=== PATIENT | male | born 1975 | race African-American/Black ===

== ENCOUNTER 2018-10-18 11:01 | Inpatient (IN) | payer OTHER ==
[2018-10-18 11:26] VITALS: BMI 22.1
--- NOTE | 2018-10-18 12:09 | HP ---
CIWA Score Nausea/Vomitin-No Nausea/No Vomiting Muscle Tremors: None Anxiety: 2 Agitation: 0-Normal Activity Paroxysmal Sweats: No Perspiration Orientation: 0-Oriented Tacttile Disturbances: 0-None Auditory Disturbances: 0-None Visual Disturbances: 0-None Headache: 0-None Present CIWA-Ar Total Score: 2 - Admission Criteria OASAS Guidelines: Admission for Medically Managed Detox: Requires at least one of the followin. CIWA greater than 12 2. Seizures within the past 24 hours 3. Delirium tremens within the past 24 hours 4. Hallucinations within the past 24 hours 5. Acute intervention needed for co occurring medical disorder 6. Acute intervention needed for co occurring psychiatric disorder 7. Severe withdrawal that cannot be handled at a lower level of care (continued vomiting, continued diarrhea, abnormal vital signs) requiring intravenous medication and/or fluids 8. Admission ROS S - HPI Allergies/Adverse Reactions: Allergies Allergy/AdvReac Type Severity Reaction Status Date / Time No Known Allergies Allergy Verified 10/18/18 11:21 History of Present Illness: pt here requesting detox from etoh use , reports was referred by Zulay kishan today , latest use today claims 4 hours ago , denies seizures , blackouts or tremors if not drinking , reports 2 pints/day use since 2 years ago , starts drinking around 7 am . " i am fine now , I drank 4 hours ago " . Current RACHANA 0.000 cocaine : 200 $ /day denies ivdu , daily since age 26 cannabis : 20 $ /day since age 12 tobacco : 3-5 cigs/day . pmhx : denies pshx : denies psych : denies , denies current SI / HI. SHX : lives alone . Exam Limitations: No Limitations - Ebola screening Have you traveled outside of the country in the last 21 days: No Have you had contact with anyone from an Ebola affected area: No - Review of Systems Constitutional: No Symptoms Reported EENT: reports: No Symptoms Reported Respiratory: reports: No Symptoms reported Cardiac: reports: No Symptoms Reported GI: reports: No Symptoms Reported : reports: No Symptoms Reported Musculoskeletal: reports: No Symptoms Reported Integumentary: reports: No Symptoms Reported, Rash Neuro: reports: No Symptoms reported Psychiatric: reports: Orientated x3 Patient History - Smoking Cessation Smoking history: Current every day smoker Have you smoked in the past 12 months: Yes Hx Chewing Tobacco Use: No Initiated information on smoking cessation: No - Substances abused Alcohol Substance route: Oral Frequency: Daily Amount used: 2 PTS OF VODKA Age of first use: 26 Date of last use: 10/18/18 Cocaine Substance route: Smoking Frequency: Daily Amount used: $200 Age of first use: 26 Date of last use: 10/18/18 Marijuana/Hashish Substance route: Smoking Frequency: Daily Amount used: $20 Age of first use: 12 Date of last use: 10/18/18 Family Disease History - Family Disease History Family History: Denies Admission Physical Exam S - Vital Signs Vital Signs: Vital Signs - 24 hr 10/18/18 11:19 Temperature 97.4 F L Pulse Rate 78 Respiratory 18 Rate Blood Pressure 138/76 - Physical General Appearance: Yes: Other (fatgiued , falls asleep frequently during interview, easily awakened by verbal stimuli) HEENTM: Yes: EOMI, Hearing grossly Normal, Normocephalic, Normal Voice Respiratory: Yes: Chest Non-Tender, Lungs Clear, Normal Breath Sounds Neck: Yes: No masses,lesions,Nodules, Trachea in good position Cardiology: Yes: Regular Rhythm, Regular Rate, S1, S2 Abdominal: Yes: Non Tender, Soft Musculoskeletal: Yes: Gait Steady Extremities: Yes: Normal Range of Motion, Non-Tender, Other (no tremors noted) Neurological: Yes: Fully Oriented, Alert, Motor Strength 5/5 Integumentary: Yes: Warm - Diagnostic (1) Cocaine abuse Current Visit: Yes Status: Acute (2) Alcohol abuse Current Visit: Yes Status: Acute (3) Cannabis abuse Current Visit: Yes Status: Acute Breathalyzer - Breathalyzer Breathalyzer: 0 Urine Drug Screen - Test Device Lot number: [id number] Expiration date: 07/16/20 - Control Is test valid?: Yes - Results Drug screen NEGATIVE: No Urine drug screen results: THC-Marijuana, ALFA-Cocaine, BZO-Benzodiazepines Inpatient Rehab Admission - Rehab Decision to Admit Inpatient rehab admission?: Yes - Initial Determination Are CD services needed?: Yes Free of communicable disease: Yes Not in need of hospitalization: Yes - Rehab Admission Criteria Previous failed treatment: No Poor recovery environment: No Comorbidities: No Lacks judgement: Yes Patient is meeting Inpatient Rehab admission criteria:: Yes (pt became verbally aggressive w/ film writer demanding detox )
[2018-10-18] MEDS ORDERED: ACETAMINOPHEN 325 MG TABLET (FP) PO PRN (12:30)
[2018-10-18] MEDS ORDERED: IBUPROFEN 400 MG TABLET (FP) PO PRN (12:30)
[2018-10-18] MEDS ORDERED: LOPERAMIDE HCL 2 MG CAPSULE PO PRN (12:30)
[2018-10-18] MEDS ORDERED: guaiFENesin 200 MG/10 ML 10 ML UNIT-DOSE CUPS PO PRN (12:30)
[2018-10-18] MEDS ORDERED: MAG HYDROX/AL HYDROX/SIMETH 30 ML UNIT-DOSE CUP PO PRN (12:30)
[2018-10-18] MEDS ORDERED: MENTHOL/PHENOL 1 EACH UD MM PRN (12:30)
[2018-10-18] MEDS ORDERED: MAGNESIUM HYDROX 2400MG/30ML ORAL SUSPENSION 30 ML CUP PO PRN (12:30)
[2018-10-18] MEDS ORDERED: hydrOXYzine PAMOATE 50 MG CAPSULE (FP) PO PRN (12:30)
[2018-10-18] MEDS ORDERED: NICOTINE POLACRILEX 2 MG GUM BC PRN (12:30)
[2018-10-18] MEDS ORDERED: MAGNESIUM CITRATE 300 ML BOTTLE PO PRN (12:30)
[2018-10-18] MEDS ORDERED: P-EPHED 60MG/TRIPROLIDI 2.5MG TABLET PO PRN (12:30)
[2018-10-18] MEDS ORDERED: TUBERCULIN PPD 5 TU/0.1ML VIAL ID ONE (13:10)
[2018-10-18] MEDS ORDERED: MELATONIN 5 MG TABLETS PO PRN (22:00)
[2018-10-18] MEDS: THIAMINE HCL 100 MG TABLET (FP) PO SCH (22:08)
[2018-10-19 02:07] LABS: URINE APPEARANCE CLEAR; URINE BILIRUBIN NEGATIVE (NEGATIVE); URINE COLOR YELLOW; URINE GLUCOSE (UA) NEGATIVE (NEGATIVE); URINE KETONE NEGATIVE (NEGATIVE); URINE LEUK ESTERASE NEGATIVE (NEGATIVE); URINE NITRITE NEGATIVE (NEGATIVE); URINE PROTEIN NEGATIVE (NEGATIVE); URINE UROBILINOGEN 0.2 mg/dL (0.2-1.0)
[2018-10-19 10:13] LABS: ALBUMIN 3.6 g/dl (3.4-5.0); BILIRUBIN,TOTAL 0.6 mg/dL (0.2-1); CALCIUM 8.8 mg/dL (8.5-10.1); POTASSIUM 4.7 mmol/L (3.5-5.1); TOT PROT 6.3 g/dl (6.4-8.2)
[2018-10-19 10:55] LABS: HEMATOCRIT 36.2 % (35.4-49); MCH 30.7 pg (25.7-33.7); MCHC 33.1 g/dl (32.0-35.9); MEAN CELL VOLUME 92.8 fl (80-96); MEAN PLT VOLUME 11.3 fl (7.5-11.1); PLATELET COUNT 292 K/MM3 (134-434); RDW 16.5 % (11.9-15.9); WHITE BLOOD COUNT 5.5 K/mm3 (4.0-10.0)
[2018-10-19] MEDS: PRENATAL VITAMINS W/ FOLIC ACID TABLET (FP) PO SCH (13:12)
[2018-10-19] MEDS: THIAMINE HCL 100 MG TABLET (FP) PO SCH (21:41)
[2018-10-20 06:35] VITALS: BP 138/90; PULSE 73; TEMP 98
--- NOTE | 2018-10-20 09:48 | PN ---
[facility] Progress Note (SOAP) Subjective: PT WAS ADMITTED TO REHAB ON 10/18/18 AND SUDDENLY EXPRESSES DESIRE TO DISCONTINUE TREATMENT THIS MORNING. PT DECLINED TO GIVE REASON FOR LEAVING, STATING "UNFORTUNATELY YES, I DON'T WANT TO TALK ABOUT IT". HOWEVER, PT WAS REFERRED FOR CD AFTERCARE TO [facility] FOR 11/02/18 AT 11:00. PT REPORTS HE DOES NOT KNOW HIS PLANS YET AND MIGHT GO TO [place]. PT REPORTS HE HAS NO PCP BUT HAVE UTILIZED [facility] IN THE PAST AND MAY CONTINUE TO DO SO WHEN NEEDED. PT IS ALERT O X 3. AMBULATES WITH STEADY GAIT. DENIES S/H/I. DENIES PMHx, PPSYHx AND NOT ON ANY MEDICATIONS. Objective: 10/20/18 09:53 Vital Signs - 24 hr 10/20/18 10/20/18 10/20/18 00:30 03:30 06:34 Temperature 98.0 F Pulse Rate 73 Respiratory 16 18 16 Rate Blood Pressure 138/90 Laboratory Tests 10/18/18 10/19/18 10/19/18 15:57 08:30 08:30 WBC 5.5 RBC 3.90 L Hgb 12.0 Hct 36.2 MCV 92.8 MCH 30.7 MCHC 33.1 RDW 16.5 H Plt Count 292 MPV 11.3 H Sodium 136 Potassium 4.7 Chloride 104 Carbon Dioxide 28 Anion Gap 5 L BUN 11 Creatinine 1.0 Est GFR (CKD-EPI)AfAm 105.62 Est GFR (CKD-EPI)NonAf 91.13 Random Glucose 88 Calcium 8.8 Total Bilirubin 0.6 AST 26 ALT 20 Alkaline Phosphatase 58 Total Protein 6.3 L Albumin 3.6 Urine Color Yellow Urine Appearance Clear Urine pH 8.0 Ur Specific [place] 1.013 Urine Protein Negative Urine Glucose (UA) Negative Urine Ketones Negative Urine Blood Negative Urine Nitrite Negative Urine Bilirubin Negative Urine Urobilinogen 0.2 Ur Leukocyte Esterase Negative RPR Titer HIV 1&2 Antibody Screen HIV P24 Antigen 10/19/18 10/19/18 08:30 08:30 WBC RBC Hgb Hct MCV MCH MCHC RDW Plt Count MPV Sodium Potassium Chloride Carbon Dioxide Anion Gap BUN Creatinine Est GFR (CKD-EPI)AfAm Est GFR (CKD-EPI)NonAf Random Glucose Calcium Total Bilirubin AST ALT Alkaline Phosphatase Total Protein Albumin Urine Color Urine Appearance Urine pH Ur Specific [place] Urine Protein Urine Glucose (UA) Urine Ketones Urine Blood Urine Nitrite Urine Bilirubin Urine Urobilinogen Ur Leukocyte Esterase RPR Titer Nonreactive HIV 1&2 Antibody Screen Negative HIV P24 Antigen Negative Home Medications Medication Instructions Recorded NK [No Known Home Medication] 10/18/18 Assessment: 10/20/18 09:57 NAD Plan: PT SIGNED OUT AMA FOLLOW UP WITH CD AFTERCARE RECOMMENDATIONS AND MEDICATION.
[2018-10-20] MEDS: PRENATAL VITAMINS W/ FOLIC ACID TABLET (FP) PO SCH (09:58)
== END 2018-10-20 10:00 | disposition left against medical advice (07) | DRG 770 ==
LOC: YASAS 11:01 → Y5N 12:39
PROVIDERS: ADMIT Neuromusculoskeletal Medicine & OMM; ATTEND Neuromusculoskeletal Medicine & OMM
PROC: HZ42ZZZ Group Counseling for Substance Abuse Treatment, Cognitive-Behavioral (ICD-10-PCS; principal; 2018-10-18)
DX: F10.20 Alcohol dependence, uncomplicated (principal); F14.20 Cocaine dependence, uncomplicated; F12.20 Cannabis dependence, uncomplicated
CPT/HCPCS: 36415; 80053; 81003; 85027; 86593; 87389

== ENCOUNTER 2019-07-15 19:36 | Inpatient (IN) | payer OTHER ==
--- NOTE | 2019-07-15 19:54 | BHS.RME ---
Substance Use & Tx History - Last Treatment Where was last treatment: Rehab (10/18/18 left AMA) Physical/Psych/Mental Status - Behavior Eye Contact: Normal - Cooperativeness Cooperativeness: Cooperative - Thinking Thought Processes: Logical - Physical Health Problems Is patient presently having any pain?: No Does patient presently have any injuries (include location): No Does patient currently have a fever: No CIWA Nausea/Vomitin-No Nausea/No Vomiting Muscle Tremors: 1-None Visible, but [place] Anxiety: 0-No Anxiety, at Ease Agitation: 1-Slight > Activity Paroxysmal Sweats: 2 Orientation: 3-Disoriented Date>2 days Tacttile Disturbances: 0-None Auditory Disturbances: 2-Mild Harshness/Frighten Visual Disturbances: 3-Moderate Sensitivity Headache: 0-None Present CIWA-Ar Total Score: 12
[2019-07-15 20:39] VITALS: BMI 22.4
--- NOTE | 2019-07-15 20:53 | HP ---
CIWA Score Nausea/Vomitin-No Nausea/No Vomiting Muscle Tremors: 1-None Visible, but [place] Anxiety: 0-No Anxiety, at Ease Agitation: 1-Slight > Activity Paroxysmal Sweats: 2 Orientation: 3-Disoriented Date>2 days Tacttile Disturbances: 0-None Auditory Disturbances: 2-Mild Harshness/Frighten Visual Disturbances: 3-Moderate Sensitivity Headache: 0-None Present CIWA-Ar Total Score: 12 - Admission Criteria OASAS Guidelines: Admission for Medically Managed Detox: Requires at least one of the followin. CIWA greater than 12 2. Seizures within the past 24 hours 3. Delirium tremens within the past 24 hours 4. Hallucinations within the past 24 hours 5. Acute intervention needed for co occurring medical disorder 6. Acute intervention needed for co occurring psychiatric disorder 7. Severe withdrawal that cannot be handled at a lower level of care (continued vomiting, continued diarrhea, abnormal vital signs) requiring intravenous medication and/or fluids 8. Admitting History and Physical - Smoking History Smoking history: Current every day smoker Have you smoked in the past 12 months: Yes Aproximately how many cigarettes per day: 5 Admission ROS [facility] - HPI Allergies/Adverse Reactions: Allergies Allergy/AdvReac Type Severity Reaction Status Date / Time No Known Allergies Allergy Verified 07/15/19 20:31 History of Present Illness: pt here requesting detox from etoh use , rpeorts 2-3 x 24 oz beer/day , reports tremors if not drinking ,denies seizures or blackouts tobacco : 5-7 cigs/day PMHX/PSHX : dermatitis tx w/ Benadryl PSych : denies Exam Limitations: Clinical Condition - Review of Systems Constitutional: Loss of Appetite EENT: reports: No Symptoms Reported Respiratory: reports: No Symptoms reported Cardiac: reports: No Symptoms Reported GI: reports: No Symptoms Reported : reports: No Symptoms Reported Musculoskeletal: reports: No Symptoms Reported Integumentary: reports: See HPI, Other (intermittent skin allergy ") Neuro: reports: No Symptoms reported Endocrine: reports: No Symptoms Reported Hematology: reports: No Symptoms Reported Psychiatric: reports: Orientated x3 Patient History - Patient Medical History Hx Asthma: No Hx Chronic Obstructive Pulmonary Disease (COPD): No Hx Cardiac Disorders: No Hx Hypertension: No Hx Seizures: No Hx Diabetes: No Hx Gastrointestinal Disorders: No Hx Genitourinary Disorders: No Hx Sexually Transmitted Disorders: No Hx Renal Disease (ESRD): No Hx Depression: No Hx Suicide Attempt: No Hx Schizophrenia: No - Patient Surgical History Past Surgical History: No Hx Neurologic Surgery: No Hx Cataract Extraction: No Hx Cardiac Surgery: No Hx Lung Surgery: No Hx Breast Surgery: No Hx Breast Biopsy: No Hx Abdominal Surgery: No Hx Appendectomy: No Hx Cholecystectomy: No Hx Genitourinary Surgery: No Hx Section: No Hx Orthopedic Surgery: No Anesthesia Reaction: No - PPD History Date: 10/20/18 - Reproductive History Patient : No - Smoking Cessation Smoking history: Current every day smoker Have you smoked in the past 12 months: Yes Aproximately how many cigarettes per day: 5 Hx Chewing Tobacco Use: No Initiated information on smoking cessation: Yes 'Breaking Loose' booklet given: 07/15/19 - Substances abused Alcohol Substance route: Oral Frequency: Daily Amount used: 3 of 40 ounces of beer Age of first use: 12 Date of last use: 07/15/19 Cocaine Substance route: Smoking Frequency: Daily Amount used: 200 hundred dollars. Age of first use: 26 Date of last use: 07/15/19 Marijuana/Hashish Substance route: Smoking Frequency: Daily Amount used: 50 dollars Age of first use: 12 Date of last use: 07/15/19 Admission Physical Exam BHS - Vital Signs Vital Signs: Vital Signs - 24 hr 07/15/19 20:31 Temperature 98.9 F Pulse Rate 80 Respiratory 18 Rate Blood Pressure 149/90 - Physical General Appearance: Yes: Mild Distress, Anxious, Other (drowsy) HEENTM: Yes: EOMI, Hearing grossly Normal, Normocephalic, Normal Voice Respiratory: Yes: Chest Non-Tender, Lungs Clear, Normal Breath Sounds, No Respiratory Distress, No Accessory Muscle Use Neck: Yes: No masses,lesions,Nodules, Trachea in good position Cardiology: Yes: Regular Rhythm, Regular Rate, S1, S2 Abdominal: Yes: Non Tender, Soft Musculoskeletal: Yes: Gait Steady Extremities: Yes: Normal Range of Motion, Non-Tender Neurological: Yes: Fully Oriented, Alert, Motor Strength 5/5 Integumentary: Yes: Warm - Diagnostic (1) Nicotine dependence Current Visit: Yes Status: Chronic Qualifiers: Nicotine product type: cigarettes (2) Alcohol abuse Current Visit: Yes Status: Chronic (3) Cocaine abuse Current Visit: Yes Status: Chronic Breathalyzer - Breathalyzer Breathalyzer: 0 Urine Drug Screen - Test Device Lot number: [id number] Expiration date: 07/16/20 - Control Is test valid?: Yes - Results Drug screen NEGATIVE: No Urine drug screen results: THC-Marijuana, ALFA-Cocaine, BZO-Benzodiazepines Inpatient Rehab Admission - Rehab Decision to Admit Inpatient rehab admission?: No
[2019-07-15] MEDS ORDERED: ACETAMINOPHEN 325 MG TABLET (FP) PO PRN ×2 (21:01)
[2019-07-15] MEDS ORDERED: BISMUTH SUBSALICYLATE 524 MG/30 ML UD PO PRN (21:01)
[2019-07-15] MEDS ORDERED: MAGNESIUM HYDROX 2400MG/30ML ORAL SUSPENSION 30 ML CUP PO PRN (21:01)
[2019-07-15] MEDS ORDERED: MAGNESIUM CITRATE 300 ML BOTTLE PO PRN (21:01)
[2019-07-15] MEDS ORDERED: IBUPROFEN 400 MG TABLET (FP) PO PRN (21:01)
[2019-07-15] MEDS ORDERED: MAG HYDROX/AL HYDROX/SIMETH 30 ML UNIT-DOSE CUP PO PRN (21:01)
[2019-07-15] MEDS ORDERED: MENTHOL/PHENOL 1 EACH UD MM PRN (21:01)
[2019-07-15] MEDS: diazePAM 5 MG TABLET PO SCH (21:34)
[2019-07-15] MEDS: THIAMINE HCL 100 MG TABLET (FP) PO SCH (21:34)
[2019-07-15] MEDS: MELATONIN 5 MG TABLETS PO PRN (21:34)
[2019-07-16] MEDS: diazePAM 5 MG TABLET PO SCH ×3 (07:37→22:10)
[2019-07-16] MEDS: PRENATAL VITAMINS W/ FOLIC ACID TABLET (FP) PO SCH (11:02)
[2019-07-16 11:18] LABS: HEMATOCRIT 39.8 % (35.4-49); HEMOGLOBIN 13.5 GM/dL (11.7-16.9); MCH 30.9 pg (25.7-33.7); MCHC 33.8 g/dl (32.0-35.9); MEAN CELL VOLUME 91.4 fl (80-96); MEAN PLT VOLUME 10.9 fl (7.5-11.1); PLATELET COUNT 241 K/MM3 (134-434); RBC 4.36 M/mm3 (4.00-5.60); RDW 15.2 % (11.9-15.9); WHITE BLOOD COUNT 4.4 K/mm3 (4.0-10.0)
[2019-07-16 11:22] LABS: ALBUMIN 3.5 g/dl (3.4-5.0); BILIRUBIN,TOTAL 0.6 mg/dL (0.2-1); BLOOD UREA NITROGEN 9.5 mg/dL (7-18); CALCIUM 8.8 mg/dL (8.5-10.1); POTASSIUM 4.5 mmol/L (3.5-5.1); TOT PROT 6.5 g/dl (6.4-8.2)
--- NOTE | 2019-07-16 12:08 | PN ---
BHS CIWA - CIWA Score Nausea/Vomitin Muscle Tremors: 1-None Visible, but [place] (+) Anxiety: 1-Mildly Anxious Agitation: 1-Slight > Activity Paroxysmal Sweats: 2 Orientation: 0-Oriented Tacttile Disturbances: 1-Very Mild Itch/Numbness Auditory Disturbances: 0-None Visual Disturbances: 0-None Headache: 0-None Present CIWA-Ar Total Score: 8 BHS Progress Note (SOAP) Subjective: interrupted sleep, sweats , upset stomach , nause-mild Objective: 07/16/19 12:11 Vital Signs Temperature 98.6 F 07/16/19 08:59 Pulse Rate 83 07/16/19 08:59 Respiratory Rate 18 07/16/19 08:59 Blood Pressure 142/83 07/16/19 08:59 O2 Sat by Pulse Oximetry (%) Laboratory Tests 07/16/19 07/16/19 07/16/19 08:00 08:00 08:00 WBC 4.4 RBC 4.36 Hgb 13.5 Hct 39.8 MCV 91.4 MCH 30.9 MCHC 33.8 RDW 15.2 Plt Count 241 MPV 10.9 Sodium 136 Potassium 4.5 Chloride 104 Carbon Dioxide 30 Anion Gap 2 L BUN 9.5 Creatinine 1.0 Est GFR (CKD-EPI)AfAm 104.88 Est GFR (CKD-EPI)NonAf 90.49 Random Glucose 98 Calcium 8.8 Total Bilirubin 0.6 AST 25 ALT 22 Alkaline Phosphatase 63 Total Protein 6.5 Albumin 3.5 RPR Titer Nonreactive pt aox3 in nad ambulating Assessment: 07/16/19 12:11 withdrawal sx's Plan: cont. etox increase fluidas [place].
[2019-07-16] MEDS: diazePAM 5 MG TABLET PO PRN (15:44)
[2019-07-16] MEDS: METHOCARBAMOL 500 MG TABLET PO PRN ×2 (17:07→22:10)
[2019-07-16] MEDS: hydrOXYzine PAMOATE 25 MG CAPSULE (FP) PO PRN (17:07)
[2019-07-16] MEDS: THIAMINE HCL 100 MG TABLET (FP) PO SCH (22:09)
[2019-07-16] MEDS: MELATONIN 5 MG TABLETS PO PRN (22:10)
[2019-07-17] MEDS: hydrOXYzine PAMOATE 25 MG CAPSULE (FP) PO PRN (01:33)
[2019-07-17] MEDS ORDERED: diazePAM 5 MG TABLET PO SCH (06:00)
[2019-07-17] MEDS: PRENATAL VITAMINS W/ FOLIC ACID TABLET (FP) PO SCH (10:19)
[2019-07-17] MEDS: diazePAM 5 MG TABLET PO PRN (10:20)
[2019-07-17 11:24] VITALS: BP 130/66; PULSE 110; TEMP 98.2
--- NOTE | 2019-07-17 18:36 | DS ---
[facility] Detox Discharge Summary Admission Date: 07/15/19 Discharge Date: 07/17/19 - History Present History: Alcohol Dependence, Cocaine Dependence Additional Comments: SINCE PATIENT REPORTS THAT CURRENT WITHDRAWAL / DETOX SYMPTOMS ARE MINIMAL IN DEGREE AND THAT HE FEELS WELL OVERALL, AT PATIENTS REQUEST, HE WAS GRANTED AN EARLY DISCHARGE FROM DETOX UNIT TODAY SO THAT HE MAY ATTEND TO NECESSARY PERSONAL AFFAIRS. HE WILL CONSIDER RETURNING FOR REHAB AT [facility] FOR AFTERCARE IN NEXT FEW DAYS. PATIENT ADVISED TO CONSIDER LOCAL 12-STEP / NA / AA OUTPATIENT SUPPORT GROUP PROGRAMS FOR AFTERCARE. PATIENT VERBALIZED UNDERSTANDING OF RECOMMENDATION. PATIENT WAS DISCHARGED FROM DETOX UNIT IN STABLE MEDICAL CONDITION. Pertinent Past History: Nicotine Dependence, Dermatitis. - Physical Exam Results Vital Signs: Vital Signs Temperature 98.2 F 07/17/19 11:24 Pulse Rate 110 H 07/17/19 11:24 Respiratory Rate 07/17/19 11:24 Blood Pressure 130/66 07/17/19 11:24 O2 Sat by Pulse Oximetry (%) Pertinent Admission Physical Exam Findings: WITHDRAWAL SYMPTOMS. Laboratory Tests 07/16/19 07/16/19 07/16/19 08:00 08:00 08:00 WBC 4.4 RBC 4.36 Hgb 13.5 Hct 39.8 MCV 91.4 MCH 30.9 MCHC 33.8 RDW 15.2 Plt Count 241 MPV 10.9 Sodium 136 Potassium 4.5 Chloride 104 Carbon Dioxide 30 Anion Gap 2 L BUN 9.5 Creatinine 1.0 Est GFR (CKD-EPI)AfAm 104.88 Est GFR (CKD-EPI)NonAf 90.49 Random Glucose 98 Calcium 8.8 Total Bilirubin 0.6 AST 25 ALT 22 Alkaline Phosphatase 63 Total Protein 6.5 Albumin 3.5 RPR Titer Nonreactive LABS NOTED. - Treatment Hospital Course: Detox Protocol Followed, Detoxed Safely, Responded well, Discharged Condition Good Patient has Accepted a Rehab Referral to: PT. WILL CONSIDER [facility] ([place], [place]) FOR LATER DATE. - Medication Discharge Medications: Ambulatory Orders NK [No Known Home Medication] 10/18/18 - Diagnosis (1) Alcohol dependence Status: Chronic Qualifiers: Substance use status: uncomplicated Qualified Code(s): F10.20 - Alcohol dependence, uncomplicated (2) Nicotine dependence Status: Chronic Qualifiers: Nicotine product type: cigarettes Substance use status: uncomplicated Qualified Code(s): F17.210 - Nicotine dependence, cigarettes, uncomplicated (3) Cocaine abuse Status: Chronic - AMA Did Patient Leave Against Medical Advice: No
[2019-07-18] MEDS ORDERED: diazePAM 5 MG TABLET PO ONE (06:00)
== END 2019-07-17 15:12 | disposition home or self-care (01) | DRG 774 ==
LOC: YASAS 19:36 → Y6N 21:07
PROVIDERS: ADMIT Allergy & Immunology; ATTEND Allergy & Immunology
PROC: HZ2ZZZZ Detoxification Services for Substance Abuse Treatment (ICD-10-PCS; principal; 2019-07-15)
DX: F10.230 Alcohol dependence with withdrawal, uncomplicated (principal); F14.20 Cocaine dependence, uncomplicated; F12.20 Cannabis dependence, uncomplicated; F17.210 Nicotine dependence, cigarettes, uncomplicated; L30.9 Dermatitis, unspecified
CPT/HCPCS: 36415; 80053; 85027; 86593

== ENCOUNTER 2019-10-27 10:35 | Inpatient (IN) | payer OTHER ==
[2019-10-27] MEDS ORDERED: MAGNESIUM HYDROX 2400MG/30ML ORAL SUSPENSION 30 ML CUP PO PRN (11:10)
[2019-10-27] MEDS ORDERED: BISMUTH SUBSALICYLATE 262 MG/15 ML BTL PO PRN (11:10)
[2019-10-27] MEDS ORDERED: IBUPROFEN 400 MG TABLET (FP) PO PRN (11:10)
[2019-10-27] MEDS ORDERED: ONDANSETRON *ODT* 4 MG TABLET SL ONE ×2 (11:10→11:17)
[2019-10-27] MEDS ORDERED: METHOCARBAMOL 500 MG TABLET PO PRN (11:10)
[2019-10-27] MEDS ORDERED: ACETAMINOPHEN 325 MG TABLET (FP) PO PRN ×2 (11:10)
[2019-10-27] MEDS ORDERED: MENTHOL/PHENOL 1 EACH UD MM PRN (11:10)
[2019-10-27] MEDS ORDERED: MAGNESIUM CITRATE 300 ML BOTTLE PO PRN (11:10)
[2019-10-27] MEDS ORDERED: chlordiazePOXIDE HCL 25 MG CAPSULE PO PRN (11:10)
[2019-10-27] MEDS ORDERED: NICOTINE POLACRILEX 2 MG GUM BUC PRN (11:10)
[2019-10-27] MEDS ORDERED: chlordiazePOXIDE HCL 25 MG CAPSULE PO ONE (11:16)
[2019-10-27 11:54] VITALS: BMI 23.7
[2019-10-27] MEDS: NICOTINE 7 MG/24 HOURS TOPICAL PATCH TD SCH (13:00)
[2019-10-27] MEDS: MAG HYDROX/AL HYDROX/SIMETH 30 ML UNIT-DOSE CUP PO PRN (13:00)
[2019-10-27] MEDS: PRENATAL VITAMINS W/ FOLIC ACID TABLET (FP) PO SCH (13:00)
[2019-10-27] MEDS: chlordiazePOXIDE HCL 25 MG CAPSULE PO SCH ×3 (13:02→22:08)
[2019-10-27 14:10] LABS: HEMATOCRIT 41.7 % (35.4-49); MCH 30.7 pg (25.7-33.7); MCHC 33.6 g/dl (32.0-35.9); MEAN CELL VOLUME 91.6 fl (80-96); MEAN PLT VOLUME 11.5 fl (7.5-11.1); PLATELET COUNT 220 K/MM3 (134-434); RBC 4.55 M/mm3 (4.00-5.60); RDW 14.2 % (11.9-15.9); WHITE BLOOD COUNT 7.1 K/mm3 (4.0-10.0)
[2019-10-27 14:26] LABS: ALBUMIN 4.3 g/dl (3.4-5.0); BLOOD UREA NITROGEN 12.7 mg/dL (7-18); CALCIUM 9.2 mg/dL (8.5-10.1); POTASSIUM 4.5 mmol/L (3.5-5.1)
[2019-10-27 14:30] LABS: BILIRUBIN,TOTAL 0.5 mg/dL (0.2-1); CREATININE 1.2 mg/dL (0.55-1.3); TOT PROT 7.4 g/dl (6.4-8.2)
[2019-10-27] MEDS: hydrOXYzine PAMOATE 25 MG CAPSULE (FP) PO SCH ×3 (14:53→22:08)
[2019-10-27] MEDS ORDERED: THIAMINE HCL 100 MG TABLET (FP) PO SCH (22:00)
[2019-10-27] MEDS ORDERED: MELATONIN 5 MG TABLETS PO SCH (22:00)
[2019-10-28] MEDS: hydrOXYzine PAMOATE 25 MG CAPSULE (FP) PO SCH (05:44)
[2019-10-28] MEDS: chlordiazePOXIDE HCL 25 MG CAPSULE PO SCH ×2 (05:44→10:13)
[2019-10-28] MEDS ORDERED: hydrOXYzine PAMOATE 25 MG CAPSULE (FP) PO PRN (08:59)
[2019-10-28 09:19] VITALS: BP 130/88; PULSE 100; TEMP 97.9
[2019-10-28] MEDS: PRENATAL VITAMINS W/ FOLIC ACID TABLET (FP) PO SCH (10:13)
[2019-10-28] MEDS: NICOTINE 7 MG/24 HOURS TOPICAL PATCH TD SCH (10:13)
[2019-10-28] MEDS: MAG HYDROX/AL HYDROX/SIMETH 30 ML UNIT-DOSE CUP PO PRN (10:14)
[2019-10-29] MEDS ORDERED: chlordiazePOXIDE HCL 25 MG CAPSULE PO SCH (05:00)
[2019-10-30] MEDS ORDERED: chlordiazePOXIDE HCL 10 MG CAPSULE PO PRN
[2019-10-30] MEDS ORDERED: chlordiazePOXIDE HCL 10 MG CAPSULE PO SCH (05:00)
[2019-10-31] MEDS ORDERED: chlordiazePOXIDE HCL 10 MG CAPSULE PO SCH (05:00)
[2019-11-01] MEDS ORDERED: chlordiazePOXIDE HCL 10 MG CAPSULE PO ONE (05:00)
== END 2019-10-28 14:32 | disposition left against medical advice (07) | DRG 770 ==
LOC: YASAS 10:35 → Y6N 11:34 → Y3N 10-28 13:35
PROVIDERS: ADMIT Allergy & Immunology; ATTEND Allergy & Immunology
PROC: HZ2ZZZZ Detoxification Services for Substance Abuse Treatment (ICD-10-PCS; principal; 2019-10-27)
DX: F10.230 Alcohol dependence with withdrawal, uncomplicated (principal); F14.20 Cocaine dependence, uncomplicated; F12.20 Cannabis dependence, uncomplicated; F17.210 Nicotine dependence, cigarettes, uncomplicated; L30.9 Dermatitis, unspecified
CPT/HCPCS: 36415; 80053; 85027; 86780; 93005; 93010; Q0162; U0003

== ENCOUNTER 2019-12-15 17:54 | Inpatient (IN) | payer OTHER ==
[2019-12-15 18:18] VITALS: BMI 23.7
--- NOTE | 2019-12-15 19:52 | HP ---
CIWA Score Nausea/Vomitin Muscle Tremors: 3 Anxiety: 3 Agitation: 3 Paroxysmal Sweats: 2 Orientation: 0-Oriented Tacttile Disturbances: 0-None Auditory Disturbances: 0-None Visual Disturbances: 0-None Headache: 3-Moderate CIWA-Ar Total Score: 16 - Admission Criteria OASAS Guidelines: Admission for Medically Managed Detox: Requires at least one of the followin. CIWA greater than 12 2. Seizures within the past 24 hours 3. Delirium tremens within the past 24 hours 4. Hallucinations within the past 24 hours 5. Acute intervention needed for co occurring medical disorder 6. Acute intervention needed for co occurring psychiatric disorder 7. Severe withdrawal that cannot be handled at a lower level of care (continued vomiting, continued diarrhea, abnormal vital signs) requiring intravenous medication and/or fluids 8. Admitting History and Physical - Smoking History Smoking history: Never smoked Have you smoked in the past 12 months: No Aproximately how many cigarettes per day: 0 Admission ROS S - [facility] Chief Complaint: Seeking admission to detox from alcohol Allergies/Adverse Reactions: Allergies Allergy/AdvReac Type Severity Reaction Status Date / Time No Known Allergies Allergy Verified 12/15/19 18:32 History of Present Illness: 44 years old male with a long history of alcohol dependence (since age 12 years old) is seeking admission to detox. His last admission was for the period 10/27/2019 - 10/28/2019 when he left against medical advice for family emergency. Treatment contract obtained from patient. He reports that he drinks 2 liters of Vodka/gin and 1 x 6 pack beer daily. He has medical history of Mitral valve disorder and psych. history of depression. He reports suicide attempt in 2001 and denies suicidal ideation at this time. He is unemployed, homeless and is on 3 years probation. 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 Exam Limitations: No Limitations - Ebola screening Have you traveled outside of the country in the last 21 days: No Have you had contact with anyone from an Ebola affected area: No Have you been sick,other than usual withdrawal symptoms: No Do you have a fever: No - Review of Systems Constitutional: Malaise, Night Sweats EENT: reports: No Symptoms Reported Respiratory: reports: No Symptoms reported Cardiac: reports: No Symptoms Reported GI: reports: Poor Appetite, Poor Fluid Intake, Abdominal cramping : reports: No Symptoms Reported Musculoskeletal: reports: No Symptoms Reported Integumentary: reports: Dryness, Flushing Neuro: reports: Headache, Tremors Endocrine: reports: No Symptoms Reported Hematology: reports: No Symptoms Reported Psychiatric: reports: Mood/Affect Appropiate, Orientated x3 Other Systems: Reviewed and Negative Patient History - Patient Medical History Hx Anemia: Yes Hx Asthma: No Hx Chronic Obstructive Pulmonary Disease (COPD): No Hx Cardiac Disorders: Yes (Mitral valve disorder) Hx Congestive Heart Failure: No Hx Hypertension: No Hx Hypercholesterolemia: No Hx Pacemaker: No HX Cerebrovascular Accident: No Hx Seizures: No Hx Diabetes: No Hx Gastrointestinal Disorders: No Hx Liver Disease: No Hx Genitourinary Disorders: No Hx Sexually Transmitted Disorders: No Hx Renal Disease (ESRD): No Hx Thyroid Disease: No Hx Human Immunodeficiency Virus (HIV): No (Negative 2019) Hx Hepatitis C: No Hx Depression: Yes Hx Suicide Attempt: No (Attemptd suicide 2001, denies suicidal ideation at this time) Hx Bipolar Disorder: No Hx Schizophrenia: No - Patient Surgical History Past Surgical History: Yes Hx Neurologic Surgery: No Hx Cataract Extraction: No Hx Cardiac Surgery: Yes (open heart surgery 2017) Hx Lung Surgery: No Hx Breast Surgery: No Hx Breast Biopsy: No Hx Abdominal Surgery: No Hx Appendectomy: No Hx Cholecystectomy: No Hx Genitourinary Surgery: No Hx Section: No Hx Orthopedic Surgery: No Anesthesia Reaction: No - PPD History Previous Implant?: Yes Documented Results: Negative w/proof Implanted On Prior [facility] Admission?: Yes Date: 10/20/18 Results: negative PPD to be Administered?: Yes - Reproductive History Patient is a Female of Child Bearing Age (11 -55 yrs old): No (Male) - Smoking Cessation Smoking history: Never smoked Have you smoked in the past 12 months: No Hx Chewing Tobacco Use: No Initiated information on smoking cessation: No - Substance & Tx. History Hx Alcohol Use: Yes Hx Substance Use: Yes Substance Use Type: Alcohol, Cocaine Hx Substance Use Treatment: Yes ([facility]) - Substances abused Alcohol Substance route: Oral Frequency: Daily Amount used: liquor- 1 liter Vodka, 1 x 6 pack beer Age of first use: 12 Date of last use: 12/15/19 Marijuana/Hashish Substance route: Smoking Frequency: 1-2 times per week Amount used: 1 blunt Age of first use: 12 Date of last use: 12/14/19 Other Other (specify): K2 Substance route: Smoking Frequency: Daily Amount used: $10 Age of first use: 44 Date of last use: 12/14/19 Admission Physical Exam [facility] - Vital Signs Vital Signs: Vital Signs - 24 hr 12/15/19 12/15/19 18:16 18:34 Temperature 98.4 F 98.4 F Pulse Rate 121 H 121 H Respiratory 18 18 Rate Blood Pressure 141/90 141/90 - Physical General Appearance: Yes: Moderate Distress, Sweating, Anxious HEENTM: Yes: Within Normal Limits Respiratory: Yes: Within Normal Limits Neck: Yes: Within Normal Limits Breast: Yes: Breast Exam Deferred Cardiology: Yes: Tachycardia Abdominal: Yes: Normal Bowel Sounds, Soft Genitourinary: Yes: Within Normal Limits Back: Yes: Normal Inspection Musculoskeletal: Yes: Within Normal Limits Extremities: Yes: Tremors Neurological: Yes: Within Normal Limits Integumentary: Yes: Warm Lymphatic: Yes: Within Normal Limits - Diagnostic (1) Mitral valve disorder Current Visit: Yes Status: Chronic (2) Alcohol dependence with withdrawal Current Visit: Yes Status: Acute (3) Cocaine dependence Current Visit: Yes Status: Chronic Qualifiers: Substance use status: uncomplicated Qualified Code(s): F14.20 - Cocaine dependence, uncomplicated Cleared for Admission [facility] - Detox or Rehab [facility] Level of Care: Medically Managed Detox Regimen/Protocol: Librium Claeared for Rehab Admission: No Breathalyzer - Breathalyzer Breathalyzer: 0 Urine Drug Screen - Test Device Lot number: [id number] Expiration date: 08/24/21 - Control Is test valid?: Yes - Results Drug screen NEGATIVE: No Urine drug screen results: ALFA-Cocaine Inpatient Rehab Admission - Rehab Decision to Admit Inpatient rehab admission?: No
[2019-12-15] MEDS ORDERED: BISMUTH SUBSALICYLATE 524 MG/30 ML UD PO PRN (20:13)
[2019-12-15] MEDS ORDERED: IBUPROFEN 400 MG TABLET (FP) PO PRN (20:13)
[2019-12-15] MEDS ORDERED: chlordiazePOXIDE HCL 25 MG CAPSULE PO PRN (20:13)
[2019-12-15] MEDS ORDERED: MAGNESIUM HYDROX 2400MG/30ML ORAL SUSPENSION 30 ML CUP PO PRN (20:13)
[2019-12-15] MEDS ORDERED: MENTHOL/PHENOL 1 EACH UD MM PRN (20:13)
[2019-12-15] MEDS ORDERED: ONDANSETRON *ODT* 4 MG TABLET SL ONE (20:13)
[2019-12-15] MEDS ORDERED: MAGNESIUM CITRATE 300 ML BOTTLE PO PRN (20:13)
[2019-12-15] MEDS ORDERED: hydrOXYzine PAMOATE 25 MG CAPSULE (FP) PO PRN (20:13)
[2019-12-15] MEDS ORDERED: METHOCARBAMOL 500 MG TABLET PO PRN (20:13)
[2019-12-15] MEDS ORDERED: MAG HYDROX/AL HYDROX/SIMETH 30 ML UNIT-DOSE CUP PO PRN (20:13)
[2019-12-15] MEDS ORDERED: ACETAMINOPHEN 325 MG TABLET (FP) PO PRN ×2 (20:13)
[2019-12-15] MEDS: MELATONIN 5 MG TABLETS PO SCH (21:26)
[2019-12-15] MEDS: THIAMINE HCL 100 MG TABLET (FP) PO SCH (21:26)
[2019-12-15] MEDS: chlordiazePOXIDE HCL 25 MG CAPSULE PO SCH (22:08)
[2019-12-16] MEDS: chlordiazePOXIDE HCL 25 MG CAPSULE PO SCH ×5 (06:57→22:06)
--- NOTE | 2019-12-16 10:41 | PN ---
S CIWA - CIWA Score Nausea/Vomitin-Mild Nausea/No Vomiting Muscle Tremors: 4-Moderate,w/Arms Extend Anxiety: 4-Mod. Anxious/Guarded Agitation: 1-Slight > Activity Paroxysmal Sweats: 2 Orientation: 0-Oriented Tacttile Disturbances: 1-Very Mild Itch/Numbness Auditory Disturbances: 0-None Visual Disturbances: 0-None Headache: 0-None Present CIWA-Ar Total Score: 13 BHS Progress Note (SOAP) Subjective: 44 years old male admitted on 12/15/19 for alcohol withdrawal sx management treating with librium detox regiment feeling tired resting in bed prefers to sleep longer today limited conversation with staff bmi 23.7 ensure 120 ml po tid with meals Objective: 12/16/19 10:46 Vital Signs - 24 hr 12/15/19 12/15/19 12/15/19 18:16 18:34 20:20 Temperature 98.4 F 98.4 F 98.4 F Pulse Rate 121 H 121 H 105 H Respiratory 18 18 18 Rate Blood Pressure 141/90 141/90 123/80 O2 Sat by Pulse Oximetry (%) 12/15/19 12/16/19 12/16/19 21:10 06:38 09:23 Temperature 97.1 F L 98.0 F 96.8 F L Pulse Rate 93 H 73 88 Respiratory 18 18 18 Rate Blood Pressure 133/81 120/65 130/79 O2 Sat by Pulse 98 100 100 Oximetry (%) 12/16/19 10:46 lab pending Assessment: 12/16/19 10:46 alcohol withdrawal Plan: librium regiment
[2019-12-16 10:50] LABS: HEMATOCRIT 37.8 % (35.4-49); HEMOGLOBIN 12.5 GM/dL (11.7-16.9); MCH 30.7 pg (25.7-33.7); MCHC 33.1 g/dl (32.0-35.9); MEAN CELL VOLUME 92.9 fl (80-96); MEAN PLT VOLUME 11.4 fl (7.5-11.1); PLATELET COUNT 183 K/MM3 (134-434); RBC 4.06 M/mm3 (4.00-5.60); RDW 14.8 % (11.9-15.9); WHITE BLOOD COUNT 7.2 K/mm3 (4.0-10.0)
[2019-12-16] MEDS: PRENATAL VITAMINS W/ FOLIC ACID TABLET (FP) PO SCH (11:00)
[2019-12-16 11:03] LABS: ALBUMIN 3.1 g/dl (3.4-5.0); BLOOD UREA NITROGEN 16.1 mg/dL (7-18); CALCIUM 8.7 mg/dL (8.5-10.1); CREATININE 1.1 mg/dL (0.55-1.3); POTASSIUM 4.4 mmol/L (3.5-5.1); TOT PROT 5.8 g/dl (6.4-8.2)
--- NOTE | 2019-12-16 11:32 | EKG ---
Test Reason : Blood Pressure : / mmHG Vent. Rate : 096 BPM Atrial Rate : 096 BPM P-R Int : 150 ms QRS Dur : 088 ms QT Int : 370 ms P-R-T Axes : 073 094 065 degrees QTc Int : 467 ms NORMAL SINUS RHYTHM BIATRIAL ENLARGEMENT RIGHTWARD AXIS ABNORMAL ECG WHEN COMPARED WITH ECG OF 27-OCT-2019 11:34, VENT. RATE HAS INCREASED BY 33 BPM NONSPECIFIC T WAVE ABNORMALITY HAS REPLACED INVERTED T WAVES IN ANTERIOR LEADS QT HAS LENGTHENED Confirmed by ALMA DELIA BRAVO MD ([id number]) on 12/16/2019 11:32:04 AM Referred By: Confirmed By:ALMA DELIA BRAVO MD
--- NOTE | 2019-12-16 11:58 | CONSULT ---
[facility] Psychiatric Consult - Data Date of interview: 12/16/19 Admission source: [facility] Identifying data: Patient is a 44 year old male, father of three, unemployed, homeless, and is not receiving financial assistance. This is one of multiple admissions for patient. Patient admitted to for alcohol and cocaine dependence. Substance Abuse History: Reproductive History. Patient is a Female of Child Bearing Age (11 -55 yrs old): No (Male). - Smoking Cessation. Smoking history: Never smoked. Have you smoked in the past 12 months: No. Hx Chewing Tobacco Use: No. Initiated information on smoking cessation: No. - Substance & Tx. History. Hx Alcohol Use: Yes. Hx Substance Use: Yes. Substance Use Type: Alcohol, Cocaine. Hx Substance Use Treatment: Yes ([facility]). - Substances abused. Alcohol. Substance route: Oral. Frequency: Daily. Amount used: liquor- 1 liter Vodka, 1 x 6 pack beer. Age of first use: 12. Date of last use: 12/15/19. Marijuana/Hashish. Substance route: Smoking. Frequency: 1-2 times per week. Amount used: 1 blunt. Age of first use: 12. Date of last use: 12/14/19. Other. Other (specify): K2. Substance route: Smoking. Frequency: Daily. Amount used: $10. Age of first use: 44. Date of last use: 12/14/19 Medical History: Mitral valve disorder, open heart surgery 2018 Psychiatric History: Patient unable to provide a clear cohesive psychiatric history. Mr. Beckwith denies history of psychiatric hospitalization and suicide attempt. States that he received a prescription of seroquel 200mg at [facility] yesterday although was unclear if he received it from the emergency room or from an outpatient psychiatrist. Reports history of outpatient psychiatric care but is unable to elaborate. At present Mr. Beckwith reports difficulty sleeping. Physical/Sexual Abuse/Trauma History: denies. Mental Status Exam - Mental Status Exam Alert and Oriented to: Time, Place, Person Cognitive Function: Good Patient Appearance: Well Groomed Mood: Withdrawn Affect: Mood Congruent Patient Behavior: Fatigued, Asleep (Needed to be awaken several times to complete assessment. ) Speech Pattern: Delayed Voice Loudness: Moderately Soft/Quiet Thought Process: Goal Oriented Hallucinations: Denies Suicidal Ideation: Denies Homicidal Ideation: Denies Insight/Judgement: Poor Sleep: Poorly Appetite: Fair Muscle strength/Tone: Normal Gait/Station: Other (Did not observe gait.) Psychiatric Findings - Problem List ([place] 1, 2,3) (1) Substance induced mood disorder Status: Acute (2) Alcohol dependence with withdrawal Status: Acute (3) Cocaine dependence Status: Chronic Qualifiers: Substance use status: uncomplicated Qualified Code(s): F14.20 - Cocaine dependence, uncomplicated (4) Substance-induced sleep disorder Status: Acute - Initial Treatment Plan Initial Treatment Plan: Psychoeducation provided. Detoxification in progress. Will order Seroquel 100mg HS ( reduced dose). Benefits and side effects discussed. Verbal consent given.
[2019-12-16] MEDS ORDERED: QUEtiapine FUMARATE 100 MG TABLET (FP) PO SCH (22:00)
[2019-12-16] MEDS: THIAMINE HCL 100 MG TABLET (FP) PO SCH (22:04)
[2019-12-16] MEDS: MELATONIN 5 MG TABLETS PO SCH (22:04)
[2019-12-17] MEDS: chlordiazePOXIDE HCL 25 MG CAPSULE PO SCH ×2 (07:09→11:07)
[2019-12-17 09:06] VITALS: BP 128/73; PULSE 77; TEMP 97.3
[2019-12-17] MEDS: PRENATAL VITAMINS W/ FOLIC ACID TABLET (FP) PO SCH (09:56)
--- NOTE | 2019-12-17 10:40 | DS ---
[facility] Detox Discharge Summary Admission Date: 12/15/19 Discharge Date: 12/17/19 - Physical Exam Results Vital Signs: Vital Signs Temperature 97.3 F L 12/17/19 08:35 Pulse Rate 77 12/17/19 08:35 Respiratory Rate 18 12/17/19 08:35 Blood Pressure 128/73 12/17/19 08:35 O2 Sat by Pulse Oximetry (%) 99 12/17/19 08:35 Pertinent Admission Physical Exam Findings: Mr. 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 Asked pt to stay one more day, and he states that he posed that to his employer who would not agree. Therefore, pt will be discharged today to return to work and has outpatient program at [facility] planned post discharge. PE Gnl: WDWN, in no distress MS: nl mentation Motor; moves limbs well Coord: nl Gait: steady Laboratory Tests 12/15/19 12/16/19 12/16/19 20:30 07:40 07:40 WBC 7.2 RBC 4.06 Hgb 12.5 Hct 37.8 MCV 92.9 MCH 30.7 MCHC 33.1 RDW 14.8 Plt Count 183 MPV 11.4 H Sodium Potassium Chloride Carbon Dioxide Anion Gap BUN Creatinine Est GFR (CKD-EPI)AfAm Est GFR (CKD-EPI)NonAf Random Glucose Calcium Total Bilirubin AST ALT Alkaline Phosphatase Total Protein Albumin Syphilis Serology Non-reactive COVID-19 (KATELNY) Not detected 12/16/19 07:40 WBC RBC Hgb Hct MCV MCH MCHC RDW Plt Count MPV Sodium 140 Potassium 4.4 Chloride 108 H Carbon Dioxide 25 Anion Gap 7 L BUN 16.1 Creatinine 1.1 Est GFR (CKD-EPI)AfAm 93.47 Est GFR (CKD-EPI)NonAf 80.64 Random Glucose 97 Calcium 8.7 Total Bilirubin 1.0 AST 36 ALT 25 Alkaline Phosphatase 45 Total Protein 5.8 L Albumin 3.1 L Syphilis Serology COVID-19 (KATELYN) Vital Signs Temperature 97.3 F L 12/17/19 08:35 Pulse Rate 77 12/17/19 08:35 Respiratory Rate 18 12/17/19 08:35 Blood Pressure 128/73 12/17/19 08:35 O2 Sat by Pulse Oximetry (%) 99 12/17/19 08:35 Home Medication List Medication Instructions Recorded Confirmed Type Quetiapine Fumarate [Seroquel -] 200 mg PO HS 12/15/19 12/15/19 History Active Medications Generic Name Dose Route Start Last Admin Trade Name Freq PRN Reason Stop Dose Admin Acetaminophen 650 mg 12/15/19 20:13 Tylenol - PO Q6H PRN PAIN LEVEL 4 - 6 Acetaminophen 650 mg 12/15/19 20:13 Tylenol - PO Q6H PRN FEVER Al Hydroxide/Mg Hydroxide 30 ml 12/15/19 20:13 Mylanta Oral Suspension - PO Q6H PRN DYSPEPSIA Bismuth Subsalicylate 524 mg 12/15/19 20:13 Pepto-Bismol - PO Q1H PRN DIARRHEA Chlordiazepoxide HCl 25 mg 12/17/19 05:00 12/17/19 07:09 Librium - PO 12/17/19 23:01 Not Given [id number] KENIA Chlordiazepoxide HCl 25 mg 12/15/19 20:13 Librium - PO 12/17/19 23:59 Q4H PRN WITHDRAWAL(CONT SUBST) Chlordiazepoxide HCl 10 mg 12/18/19 05:00 Librium - PO 12/18/19 23:01 [id number] KENIA Chlordiazepoxide HCl 10 mg 12/19/19 05:00 Librium - PO 12/19/19 17:01 Q12H KENIA Chlordiazepoxide HCl 10 mg 12/18/19 00:00 Librium - PO 12/19/19 00:00 Q4H PRN WITHDRAWAL(CONT SUBST) Chlordiazepoxide HCl 10 mg 12/20/19 05:00 Librium - PO 12/20/19 05:01 ONCE@0500 ONE Eucalyptus/Menthol/Phenol/Sorbitol 1 each 12/15/19 20:13 Cepastat Lozenge - MM 12/21/19 20:13 Q4H PRN SORE THROAT Hydroxyzine Pamoate 25 mg 12/15/19 20:13 Vistaril - PO 12/21/19 20:13 Q4HWA PRN ANXIETY Ibuprofen 400 mg 12/15/19 20:13 Motrin - PO Q6H PRN PAIN LEVEL 1 - 3 Magnesium Citrate 300 ml 12/15/19 20:13 Citroma - PO Q48H PRN CONSTIPATION Magnesium Hydroxide 30 ml 12/15/19 20:13 Milk Of Magnesia - PO PRN PRN CONSTIPATION Melatonin 5 mg 12/15/19 22:00 12/16/19 22:04 Melatonin PO 5 mg HS KENIA Administration Methocarbamol 500 mg 12/15/19 20:13 Robaxin - PO 12/21/19 20:13 Q6H PRN MUSCLE SPASMS Multivit/Folic Acid/Iron 1 tab 12/16/19 10:00 12/17/19 09:56 Vitamins (Sjr) - PO Not Given DAILY KENIA Quetiapine Fumarate 100 mg 12/16/19 22:00 12/16/19 22:04 Seroquel - PO 100 mg HS KENIA Administration Thiamine HCl 100 mg 12/15/19 22:00 12/16/19 22:04 Vitamin B1 - PO 100 mg HS KENIA Administration - Treatment Hospital Course: Detox Protocol Followed, Detoxed Safely, Responded well, Discharged Condition Good, Rehab Referral Accepted Patient has Accepted a Rehab Referral to: Outpatient program at [facility] - Medication Discharge Medications: Ambulatory Orders Quetiapine Fumarate [Seroquel -] 200 mg PO HS 12/15/19
[2019-12-18] MEDS ORDERED: chlordiazePOXIDE HCL 10 MG CAPSULE PO PRN
[2019-12-18] MEDS ORDERED: chlordiazePOXIDE HCL 10 MG CAPSULE PO SCH (05:00)
[2019-12-19] MEDS ORDERED: chlordiazePOXIDE HCL 10 MG CAPSULE PO SCH (05:00)
[2019-12-20] MEDS ORDERED: chlordiazePOXIDE HCL 10 MG CAPSULE PO ONE (05:00)
== END 2019-12-17 10:47 | disposition home or self-care (01) | DRG 774 ==
LOC: YASAS 17:54 → Y3N 20:31
PROVIDERS: ADMIT Allergy & Immunology; ATTEND Allergy & Immunology
PROC: HZ2ZZZZ Detoxification Services for Substance Abuse Treatment (ICD-10-PCS; principal; 2019-12-15)
DX: F10.230 Alcohol dependence with withdrawal, uncomplicated (principal); F14.20 Cocaine dependence, uncomplicated; F19.24 Other psychoactive substance dependence with psychoactive substance-induced mood disorder; F19.282 Other psychoactive substance dependence with psychoactive substance-induced sleep disorder; I34.9 Nonrheumatic mitral valve disorder, unspecified; R00.0 Tachycardia, unspecified; Z91.5 Personal history of self-harm
CPT/HCPCS: 36415; 80053; 85027; 86780; 93005; 93010; U0003

== ENCOUNTER 2020-01-18 14:30 | Inpatient (IN) | payer OTHER ==
--- NOTE | 2020-01-18 14:54 | BHS.RME ---
Substance Use & Tx History - Substance Use History Alcohol Substance amount: onelitre Vodka Frequency of use: Daily Substance route: Oral Date of Last Use: 01/17/20 Cocaine- Powder Substance amount: powder and crack $100 Frequency of use: Daily Substance route: Inhalation (ex: sniffing or snorting), Smoking Date of Last Use: 01/17/20 Marijuana/Hashish Substance amount: $10 Frequency of use: Daily Substance route: Smoking Date of Last Use: 01/17/20 PCP Substance amount: $10 Frequency of use: Less than 3 times per week Date of Last Use: 01/17/20 - Last Treatment Date of last treatment: December 142019 Treatment type: Substance Use Disorder (OC) Where was last treatment: Detox Physical/Psych/Mental Status - Behavior General Behavior: Increased activity (restlessness, agitation) Eye Contact: Normal - Cooperativeness Cooperativeness: Cooperative - Thinking Thought Processes: Tight Thought content: Future oriented - Physical Health Problems Is patient presently having any pain?: No Does patient presently have any injuries (include location): No Does patient currently have a fever: No CIWA Nausea/Vomitin-Mild Nausea/No Vomiting Muscle Tremors: 4-Moderate,w/Arms Extend Anxiety: 4-Mod. Anxious/Guarded Agitation: 0-Normal Activity Paroxysmal Sweats: 1-Minimal Palms Moist Orientation: 0-Oriented Tacttile Disturbances: 2-Mild Itch/Numbness/Burn Auditory Disturbances: 0-None Visual Disturbances: 0-None Headache: 0-None Present CIWA-Ar Total Score: 12
[2020-01-18 15:12] VITALS: BMI 23.3
--- NOTE | 2020-01-18 15:55 | HP ---
CIWA Score Nausea/Vomitin-Mild Nausea/No Vomiting Muscle Tremors: 4-Moderate,w/Arms Extend Anxiety: 4-Mod. Anxious/Guarded Agitation: 0-Normal Activity Paroxysmal Sweats: 1-Minimal Palms Moist Orientation: 0-Oriented Tacttile Disturbances: 2-Mild Itch/Numbness/Burn Auditory Disturbances: 0-None Visual Disturbances: 0-None Headache: 0-None Present CIWA-Ar Total Score: 12 - Admission Criteria OASAS Guidelines: Admission for Medically Managed Detox: Requires at least one of the followin. CIWA greater than 12 2. Seizures within the past 24 hours 3. Delirium tremens within the past 24 hours 4. Hallucinations within the past 24 hours 5. Acute intervention needed for co occurring medical disorder 6. Acute intervention needed for co occurring psychiatric disorder 7. Severe withdrawal that cannot be handled at a lower level of care (continued vomiting, continued diarrhea, abnormal vital signs) requiring intravenous medication and/or fluids 8. Admitting History and Physical - Admission Chief Complaint: Detox History of Present Illness: Patient is a 45 y.o. M H for mitral valve replacement presenting to [facility] for detox. Patient was examined in the room and is in no acute distress. Substance abuse consists of alcohol 1 litre of vodka a day, no seizures, no blackouts, (+) eye opene. Crack 100$ a day, Marijuana 10$ a day, PCP 10$ a week. History Source: Patient Limitations to Obtaining History: No Limitations - Past Medical History REPRESENTATIVE PERSONAL SERVICE: No: Seizure Cardiovascular: No: HTN, Hyperlipdemia Pulmonary: No: COPD, Pneumonia Gastrointestinal: No: GI Bleed Hepatobiliary: No: Hepatitis A, Hepatitis B, Hepatitis C Heme/Onc: No: Anemia, Other Infectious Disease: No: HIV, STD's, Tuberculosis Psych: No: Anxiety, Bipolar, Depression - Past Surgical History Past Surgical History: Yes: Valve Replacement (Mitral) - Smoking History Smoking history: Never smoked Have you smoked in the past 12 months: No Aproximately how many cigarettes per day: 0 - Alcohol/Substance Use Hx Alcohol Use: Yes History of Substance Use: reports: Cocaine, Marijuana - Social History Usual Living Arrangement: Yes: Other (Homeless) ADL: Independent Occupation: none History of Recent Travel: No Admission ROS [facility] - [facility] Allergies/Adverse Reactions: Allergies Allergy/AdvReac Type Severity Reaction Status Date / Time No Known Allergies Allergy Verified 01/18/20 15:21 - Ebola screening Have you traveled outside of the country in the last 21 days: No Have you had contact with anyone from an Ebola affected area: No Have you been sick,other than usual withdrawal symptoms: No Do you have a fever: No - Review of Systems Constitutional: No Symptoms Reported EENT: denies: Blurred Vision, Double Vision Respiratory: denies: Cough, Shortness of Breath Cardiac: denies: Chest Pain, Lightheadedness GI: denies: Constipated, Diarrhea, Nausea, Vomiting : denies: Burning, Dysuria Musculoskeletal: denies: Joint Pain, Muscle Weakness Integumentary: denies: Dryness Neuro: denies: Headache, Numbness, Paresthesia, Seizure, Dizziness Hematology: reports: No Symptoms Reported Psychiatric: reports: No Sypmtoms Reported, Judgement Intact, Mood/Affect Appropiate, Orientated x3 Patient History - Patient Medical History Hx Anemia: Yes Hx Asthma: No Hx Chronic Obstructive Pulmonary Disease (COPD): No Hx Cardiac Disorders: Yes (MITRAL VALVE REPAIR) Hx Congestive Heart Failure: No Hx Hypertension: No Hx Hypercholesterolemia: No Hx Pacemaker: No HX Cerebrovascular Accident: No Hx Seizures: No Hx Diabetes: No Hx Gastrointestinal Disorders: No Hx Liver Disease: No Hx Genitourinary Disorders: No Hx Sexually Transmitted Disorders: No Hx Renal Disease (ESRD): No Hx Thyroid Disease: No Hx Human Immunodeficiency Virus (HIV): No (Negative 2020) Hx Hepatitis C: No Hx Depression: No Hx Suicide Attempt: No Hx Bipolar Disorder: No Hx Schizophrenia: No - Patient Surgical History Past Surgical History: Yes Hx Neurologic Surgery: No Hx Cataract Extraction: No Hx Cardiac Surgery: Yes (open heart surgery 2018- MITRAL VALVE REPAIR) Hx Lung Surgery: No Hx Breast Surgery: No Hx Breast Biopsy: No Hx Abdominal Surgery: No Hx Appendectomy: No Hx Cholecystectomy: No Hx Genitourinary Surgery: No Hx Section: No Hx Orthopedic Surgery: No Anesthesia Reaction: No - PPD History Previous Implant?: Yes Documented Results: Negative w/proof Implanted On Prior R Admission?: Yes Date: 12/17/19 Results: 0MM - Smoking Cessation Smoking history: Never smoked Have you smoked in the past 12 months: No Aproximately how many cigarettes per day: 0 Hx Chewing Tobacco Use: No - Substances abused Alcohol Substance route: Oral Frequency: Daily Amount used: 1 L VODKA DAILY Age of first use: 12 Date of last use: 01/17/20 Cocaine Substance route: Inhalation Frequency: Daily Amount used: 100 Age of first use: 12 Date of last use: 01/17/20 PCP Substance route: Smoking Frequency: Daily Amount used: $10 Age of first use: 44 Date of last use: 01/17/20 Marijuana/Hashish Substance route: Smoking Frequency: Daily Amount used: $10 Age of first use: 12 Date of last use: 01/17/20 Admission Physical Exam S - Vital Signs Vital Signs: Vital Signs - 24 hr 01/18/20 01/18/20 15:10 15:21 Temperature 98.1 F 98.1 F Pulse Rate 89 89 Respiratory 20 20 Rate Blood Pressure 109/70 109/70 - Physical General Appearance: Yes: Within Normal Limits, No Apparent Distress, Appropriately Dressed Respiratory: Yes: Within Normal Limits, Lungs Clear, Normal Breath Sounds, No Respiratory Distress, No Accessory Muscle Use. No: Accessory Muscle Use, Crackles, Rales, Wheezing, Expiration Cardiology: Yes: Within Normal Limits, Regular Rhythm, Regular Rate. No: Edema, JVD Abdominal: Yes: Within Normal Limits, Normal Bowel Sounds, Non Tender, Flat, Soft. No: Distended Genitourinary: Yes: Within Normal Limits Back: Yes: Normal Inspection. No: CVA Tenderness, CVA Tenderness (L) Musculoskeletal: Yes: Within Normal Limits Extremities: Yes: Normal Inspection, Non-Tender. No: Pedal Edema Neurological: Yes: Within Normal Limits, Fully Oriented, Alert, Normal Mood/Affect, Normal Response Integumentary: Yes: Within Normal Limits, Normal Color, Warm - Diagnostic (1) Alcohol dependence with withdrawal Current Visit: No Status: Acute (2) Cannabis abuse Current Visit: No Status: Acute (3) Substance induced mood disorder Current Visit: No Status: Acute (4) Substance-induced sleep disorder Current Visit: No Status: Acute (5) Alcohol abuse Current Visit: No Status: Chronic (6) Alcohol dependence Current Visit: No Status: Chronic Qualifiers: Substance use status: uncomplicated Qualified Code(s): F10.20 - Alcohol dependence, uncomplicated (7) Cannabis dependence Current Visit: No Status: Chronic (8) Cocaine abuse Current Visit: No Status: Chronic (9) Cocaine dependence Current Visit: No Status: Chronic Qualifiers: Substance use status: uncomplicated Qualified Code(s): F14.20 - Cocaine dependence, uncomplicated (10) Mitral valve disorder Current Visit: No Status: Chronic Cleared for Admission [facility] - Detox or Rehab [facility] Level of Care: Medically Managed Detox Regimen/Protocol: Librium Breathalyzer - Breathalyzer Breathalyzer: 0 Vital Signs - Vital Signs Vital signs refused: No Temperature: 98.1 F Pulse Rate: 89 Respiratory Rate: 20 Blood Pressure: 109/70 - Height Height: 1.85 m - Weight Weight: 80.286 kg - BMI Body Mass Index (BMI): 23.3 Urine Drug Screen - Test Device Lot number: [id number] Expiration date: 08/24/21 - Control Is test valid?: Yes - Results Drug screen NEGATIVE: No Urine drug screen results: THC-Marijuana, ALFA-Cocaine, MET-Methamphetamine, AMP- Amphetamines, MTD-Methadone, BZO-Benzodiazepines, MDMA-Ecstasy Inpatient Rehab Admission - Rehab Decision to Admit Inpatient rehab admission?: No
[2020-01-18] MEDS ORDERED: NICOTINE POLACRILEX 2 MG GUM BUC PRN (16:01)
[2020-01-18] MEDS ORDERED: ACETAMINOPHEN 325 MG TABLET (FP) PO PRN ×2 (16:01)
[2020-01-18] MEDS ORDERED: IBUPROFEN 400 MG TABLET (FP) PO PRN (16:01)
[2020-01-18] MEDS ORDERED: MAGNESIUM HYDROX 2400MG/30ML ORAL SUSPENSION 30 ML CUP PO PRN (16:01)
[2020-01-18] MEDS ORDERED: MENTHOL/PHENOL 1 EACH UD MM PRN (16:01)
[2020-01-18] MEDS ORDERED: BISMUTH SUBSALICYLATE 524 MG/30 ML UD PO PRN (16:01)
[2020-01-18] MEDS ORDERED: MAGNESIUM CITRATE 300 ML BOTTLE PO PRN (16:01)
[2020-01-18] MEDS ORDERED: METHOCARBAMOL 500 MG TABLET PO PRN (16:01)
[2020-01-18] MEDS ORDERED: MAG HYDROX/AL HYDROX/SIMETH 30 ML UNIT-DOSE CUP PO PRN (16:01)
[2020-01-18] MEDS ORDERED: ONDANSETRON *ODT* 4 MG TABLET SL ONE (16:15)
--- NOTE | 2020-01-18 16:15 | PN ---
Teaching Attending Note Name of Resident: Dat Szymanski ATTENDING PHYSICIAN STATEMENT I saw and evaluated the patient. I reviewed the resident's note and discussed the case with the resident. I agree with the resident's findings and plan as documented. SUBJECTIVE: OBJECTIVE: ASSESSMENT AND PLAN: 1. Alcohol use disorder Plan 1. Librium detox protocol
[2020-01-18] MEDS: hydrOXYzine PAMOATE 25 MG CAPSULE (FP) PO SCH ×2 (17:15→22:37)
[2020-01-18] MEDS: chlordiazePOXIDE HCL 25 MG CAPSULE PO SCH ×2 (17:16→22:37)
[2020-01-18] MEDS: MELATONIN 5 MG TABLETS PO SCH (22:37)
[2020-01-18] MEDS: THIAMINE HCL 100 MG TABLET (FP) PO SCH (22:37)
[2020-01-19] MEDS: chlordiazePOXIDE HCL 25 MG CAPSULE PO SCH ×4 (05:44→23:33)
[2020-01-19] MEDS: hydrOXYzine PAMOATE 25 MG CAPSULE (FP) PO SCH ×5 (05:44→23:33)
[2020-01-19] MEDS: PRENATAL VITAMINS W/ FOLIC ACID TABLET (FP) PO SCH (10:26)
[2020-01-19] MEDS: NICOTINE 7 MG/24 HOURS TOPICAL PATCH TD SCH (10:27)
[2020-01-19 11:09] LABS: HEMATOCRIT 37.7 % (35.4-49); HEMOGLOBIN 12.7 GM/dL (11.7-16.9); MCH 31.6 pg (25.7-33.7); MCHC 33.8 g/dl (32.0-35.9); MEAN CELL VOLUME 93.5 fl (80-96); MEAN PLT VOLUME 11.3 fl (7.5-11.1); PLATELET COUNT 210 K/MM3 (134-434); RBC 4.03 M/mm3 (4.00-5.60); RDW 14.5 % (11.9-15.9); WHITE BLOOD COUNT 5.6 K/mm3 (4.0-10.0)
[2020-01-19 11:23] LABS: ALBUMIN 3.2 g/dl (3.4-5.0); BILIRUBIN,TOTAL 0.2 mg/dL (0.2-1); BLOOD UREA NITROGEN 11.8 mg/dL (7-18); CALCIUM 8.7 mg/dL (8.5-10.1); CREATININE 1.1 mg/dL (0.55-1.3); TOT PROT 5.9 g/dl (6.4-8.2)
--- NOTE | 2020-01-19 16:29 | CONSULT ---
[facility] Psychiatric Consult - Data Date of interview: 01/19/20 Admission source: [facility] Identifying data: Readmission to [facility] at [address] [place] [address] for this 45 y/o AA male self-referred for detoxification treatment. OC issues : alcohol, phencyclidine, cannabis, crack/cocaine. Patient is , a father of three, homeless, unemployed and supported on undisclosed means. Substance Abuse History: Discussed with the patient. OC profile as follows : Smoking history: Never smoked. Have you smoked in the past 12 months: No. Approximately how many cigarettes per day: 0. Hx Chewing Tobacco Use: No. History of OC treatment failures. - Substances abused. Alcohol. Substance route: Oral. Frequency: Daily. Amount used: 1 L VODKA DAILY. Age of first use: 12. Date of last use: 01/17/20. Cocaine. Substance route: Inhalation. Frequency: Daily. Amount used: 100. Age of first use: 12. Date of last use: 01/17/20. PCP. Substance route: Smoking. Frequency: Daily. Amount used: $10. Age of first use: 44. Date of last use: 01/17/20. Marijuana/Hashish. Substance route: Smoking. Frequency: Daily. Amount used: $10. Age of first use: 12. Date of last use: 01/17/20 Medical History: Medical profile is remarkable for history of heart surgery (mitral valve replacement). Patient endorses good general health. Psychiatric History: Patient is a distant, marginally cooperative and dismissive historian. Mr Beckwith denies history of psychiatric hospitalizations, OPD care or suicide attempts. Physical/Sexual Abuse/Trauma History: Not discussed. Patient declines. Additional Comment: Urine drug screen results: THC-Marijuana, ALFA-Cocaine, MET- Methamphetamine, AMP-Amphetamines, MTD-Methadone, BZO-Benzodiazepines, MDMA- Ecstasy Mental Status Exam - Mental Status Exam Alert and Oriented to: Time, Place, Person Cognitive Function: Grossly Intact Patient Appearance: Unkempt, Disheveled Mood: Hostile, Withdrawn, Irritable Affect: Mood Congruent, Constricted Patient Behavior: Fatigued, Guarded Speech Pattern: Clear Voice Loudness: Normal Thought Process: Goal Oriented Thought Disorder: Not Present Hallucinations: Denies Suicidal Ideation: Denies Homicidal Ideation: Denies Insight/Judgement: Poor Sleep: Well Appetite: Good Gait/Station: Other (not observed out of bed) Psychiatric Findings - Problem List ([place] 1, 2,3) (1) Alcohol dependence with withdrawal Current Visit: Yes Status: Acute (2) Cannabis dependence Current Visit: Yes Status: Chronic (3) Cocaine dependence Current Visit: Yes Status: Chronic Qualifiers: Substance use status: uncomplicated Qualified Code(s): F14.20 - Cocaine dependence, uncomplicated (4) Substance induced mood disorder Current Visit: Yes Status: Chronic - Initial Treatment Plan Initial Treatment Plan: Psychoeducation. Sleep hygiene. Support. Detoxification. Observation.
[2020-01-19] MEDS: chlordiazePOXIDE HCL 25 MG CAPSULE PO PRN (19:47)
[2020-01-19] MEDS: THIAMINE HCL 100 MG TABLET (FP) PO SCH (23:33)
[2020-01-19] MEDS: MELATONIN 5 MG TABLETS PO SCH (23:33)
[2020-01-20] MEDS: hydrOXYzine PAMOATE 25 MG CAPSULE (FP) PO SCH ×5 (05:56→22:58)
[2020-01-20] MEDS: chlordiazePOXIDE HCL 25 MG CAPSULE PO SCH ×4 (05:56→22:58)
--- NOTE | 2020-01-20 07:26 | PN ---
S CIWA - CIWA Score Nausea/Vomitin Muscle Tremors: 2 Anxiety: 3 Agitation: 2 Paroxysmal Sweats: 1-Minimal Palms Moist Orientation: 0-Oriented Tacttile Disturbances: 1-Very Mild Itch/Numbness Auditory Disturbances: 0-None Visual Disturbances: 0-None Headache: 2-Mild CIWA-Ar Total Score: 13 BHS Progress Note (SOAP) Subjective: alert,ittitable,anxious,intettrpted sleep,nausea,aching pain in the body and back Objective: 01/20/20 07:24 [id number],bp 113/64 Assessment: 01/20/20 07:25 withdrawal symptom Plan: continue detox librium regimen
[2020-01-20] MEDS: NICOTINE 7 MG/24 HOURS TOPICAL PATCH TD SCH (10:28)
[2020-01-20] MEDS: PRENATAL VITAMINS W/ FOLIC ACID TABLET (FP) PO SCH (10:28)
[2020-01-20] MEDS: chlordiazePOXIDE HCL 25 MG CAPSULE PO PRN (10:29)
--- NOTE | 2020-01-20 13:08 | PN ---
S CIWA - CIWA Score Nausea/Vomitin-Mild Nausea/No Vomiting Muscle Tremors: 2 Anxiety: 2 Agitation: 2 Paroxysmal Sweats: No Perspiration Orientation: 0-Oriented Tacttile Disturbances: 1-Very Mild Itch/Numbness Auditory Disturbances: 0-None Visual Disturbances: 0-None Headache: 1-Very Mild CIWA-Ar Total Score: 9 S Progress Note (SOAP) Subjective: alert,irritable,anxious,interrupted sleep,aching pain Objective: 01/20/20 13:06 Vital Signs Temperature 98.0 F 01/20/20 08:35 Pulse Rate 73 01/20/20 08:35 Respiratory Rate 16 01/20/20 08:35 Blood Pressure 129/73 01/20/20 08:35 O2 Sat by Pulse Oximetry (%) 100 01/20/20 08:35 01/20/20 13:07 Laboratory Last Values WBC 5.6 K/mm3 (4.0-10.0) 01/19/20 08:10 RBC 4.03 M/mm3 (4.00-5.60) 01/19/20 08:10 Hgb 12.7 GM/dL (11.7-16.9) 01/19/20 08:10 Hct 37.7 % (35.4-49) 01/19/20 08:10 MCV 93.5 fl (80-96) 01/19/20 08:10 MCH 31.6 pg (25.7-33.7) 01/19/20 08:10 MCHC 33.8 g/dl (32.0-35.9) 01/19/20 08:10 RDW 14.5 % (11.9-15.9) 01/19/20 08:10 Plt Count 210 K/MM3 (134-434) 01/19/20 08:10 MPV 11.3 fl (7.5-11.1) H 01/19/20 08:10 Sodium 141 mmol/L (136-145) 01/19/20 08:10 Potassium 4.0 mmol/L (3.5-5.1) 01/19/20 08:10 Chloride 106 mmol/L (98-107) 01/19/20 08:10 Carbon Dioxide 30 mmol/L (21-32) 01/19/20 08:10 Anion Gap 5 MMOL/L (8-16) L 01/19/20 08:10 BUN 11.8 mg/dL (7-18) 01/19/20 08:10 Creatinine 1.1 mg/dL (0.55-1.3) 01/19/20 08:10 Est GFR (CKD-EPI)AfAm 92.81 01/19/20 08:10 Est GFR (CKD-EPI)NonAf 80.08 01/19/20 08:10 Random Glucose 97 mg/dL (74-106) 01/19/20 08:10 Calcium 8.7 mg/dL (8.5-10.1) 01/19/20 08:10 Total Bilirubin 0.2 mg/dL (0.2-1) 01/19/20 08:10 AST 17 U/L (15-37) 01/19/20 08:10 ALT 20 U/L (13-61) 01/19/20 08:10 Alkaline Phosphatase 56 U/L (45-117) 01/19/20 08:10 Total Protein 5.9 g/dl (6.4-8.2) L 01/19/20 08:10 Albumin 3.2 g/dl (3.4-5.0) L 01/19/20 08:10 Syphilis Serology Non-reactive (NONREACTIVE) 01/19/20 08:10 COVID-19 (KATELYN) Not detected (Not Detected) 01/18/20 15:30 HIV Ag/Ab Combo Qual Negative (NEGATIVE) 01/19/20 08:10 Assessment: 01/20/20 13:08 withdrawal symptom Plan: continue detox librium regimen
[2020-01-20] MEDS: THIAMINE HCL 100 MG TABLET (FP) PO SCH (22:58)
[2020-01-20] MEDS: MELATONIN 5 MG TABLETS PO SCH (22:58)
[2020-01-21] MEDS ORDERED: chlordiazePOXIDE HCL 10 MG CAPSULE PO PRN
[2020-01-21] MEDS ORDERED: chlordiazePOXIDE HCL 10 MG CAPSULE PO SCH (05:00)
[2020-01-21] MEDS: hydrOXYzine PAMOATE 25 MG CAPSULE (FP) PO SCH (07:09)
[2020-01-21 09:21] VITALS: BP 118/63; PULSE 73
[2020-01-21 10:00] VITALS: TEMP 97.3
--- NOTE | 2020-01-21 10:04 | DS ---
[facility] Detox Discharge Summary Admission Date: 01/18/20 - Physical Exam Results Vital Signs: Vital Signs Temperature 97.3 F L 01/21/20 09:58 Pulse Rate 73 01/21/20 08:58 Respiratory Rate 18 01/21/20 08:58 Blood Pressure 118/63 01/21/20 08:58 O2 Sat by Pulse Oximetry (%) 100 01/21/20 06:00 - Medication Discharge Medications: Ambulatory Orders NK [No Known Home Medication] 01/18/20
[2020-01-22] MEDS ORDERED: chlordiazePOXIDE HCL 10 MG CAPSULE PO SCH (05:00)
[2020-01-23] MEDS ORDERED: chlordiazePOXIDE HCL 10 MG CAPSULE PO ONE (05:00)
== END 2020-01-21 11:18 | disposition home or self-care (01) | DRG 774 ==
LOC: YASAS 14:30 → Y3N 15:24
PROVIDERS: ADMIT Allergy & Immunology; ATTEND Allergy & Immunology
PROC: HZ2ZZZZ Detoxification Services for Substance Abuse Treatment (ICD-10-PCS; principal; 2020-01-18)
DX: F10.230 Alcohol dependence with withdrawal, uncomplicated (principal); F14.20 Cocaine dependence, uncomplicated; F16.20 Hallucinogen dependence, uncomplicated; F12.20 Cannabis dependence, uncomplicated; F19.282 Other psychoactive substance dependence with psychoactive substance-induced sleep disorder; F19.24 Other psychoactive substance dependence with psychoactive substance-induced mood disorder; Z95.2 Presence of prosthetic heart valve; Z56.0 Unemployment, unspecified; Z59.0 Homelessness
CPT/HCPCS: 36415; 80053; 85027; 86780; 87389; U0003